=== PATIENT | male | born 1945 | race Caucasian/White ===

== ENCOUNTER 2016-06-18 16:25 | Observation (INO) | payer OTHER, BC ==
[~2016-06-18] VITALS: Ht 182.9 cm; Wt 94.8 kg
[2016-06-18 16:52] LABS: HEMATOCRIT 45.5 % (38.0-50.0); MCH 32.9 PG (29.0-34.0); MCHC 35.2 G/DL (30.0-36.0); MCV 93.4 FL (86-99); MEAN PLAT.VOLUME 10.8 uM^3 (9.0-12.4); PLATELET COUNT 215 K/uL (156-360); RBC DIS.WIDTH-CV 13.3 % (11.8-14.6); RED BLOOD COUNT 4.87 M/uL (4.00-5.50); WHITE BLOOD COUNT 8.4 K/uL (4.1-10.2)
[2016-06-18 17:02] LABS: CHLORIDE 106 mEq/L (99-109); POTASSIUM 4.5 mEq/L (3.7-5.4)
[2016-06-18 17:03] LABS: SODIUM 141 mEq/L (136-147)
[2016-06-18 17:04] LABS: GLUCOSE 94 mg/dL (70-99)
[2016-06-18 17:06] LABS: ANION GAP 10 MEQ/L (2-14)
[2016-06-18 17:08] LABS: GFR ESTIMATE (CALCULATED) > 59 mL/min/
[2016-06-18 17:09] LABS: UREA NITROGEN (BUN) 19 mg/dL (9-23)
[2016-06-18 17:15] LABS: TROP-I INTERPRETATION NEGATIVE; TROPONIN-I < 0.01 ng/mL (0.0-0.30)
[2016-06-19 01:06] VITALS: BP 137/84
[2016-06-19 01:07] LABS: D-DIMER ELISA 0.54 mg/L FEU (< 0.57)
[2016-06-19 01:18] LABS: ALKALINE PHOSPHATASE 90 IU/L (3-129)
[2016-06-19 01:21] LABS: DIRECT BILIRUBIN 0.3 mg/dL (0.0-0.3)
[2016-06-19 01:22] LABS: LIPASE 29 U/L (1.0-51.0)
[2016-06-19 01:25] LABS: TROP-I INTERPRETATION NEGATIVE; TROPONIN-I < 0.01 ng/mL (0.0-0.30)
[2016-06-19 04:00] VITALS: BP 132/70
[2016-06-19 07:38] LABS: TROP-I INTERPRETATION NEGATIVE; TROPONIN-I 0.01 ng/mL (0.0-0.30)
[2016-06-19 09:08] VITALS: BP 143/88
[2016-06-19] MEDS ORDERED: METOPROLOL SUCC25 MG PO (10:47)
[2016-06-19] MEDS ORDERED: ASPIR-LOW81 MG PO (10:47)
[2016-06-19] MEDS ORDERED: PRAVASTATIN SOD40 MG PO (10:47)
[2016-06-19 11:13] LABS: HDL CHOLESTEROL 42 MG/DL (Desirable>=40); LDL CHOLESTEROL 135 mg/dL (Desirable<100); NON-HDL CHOLESTEROL 163 mg/dL (Desirable<160); TOTAL CHOLESTEROL 205 mg/dL (Desirable<200); TRIGLYCERIDES 141 MG/DL (Normal: <150)
[2016-06-19] MEDS ORDERED: PEPCID20 MG PO (11:31)
[2016-06-19 12:46] VITALS: BP 130/80
== END 2016-06-19 13:32 | disposition home or self-care (01) ==
LOC: EME 16:25 → 5WEST 21:23 → EDOF 21:23 → 5WEST 06-19 00:29
PROVIDERS: Hospitalist
DX: R07.89 Other chest pain (principal); E78.5 Hyperlipidemia, unspecified; Z79.82 Long term (current) use of aspirin; Z82.49 Family history of ischemic heart disease and other diseases of the circulatory system; Z87.891 Personal history of nicotine dependence; I10 Essential (primary) hypertension
CPT/HCPCS: 71020; 80048; 80061; 80076; 83690; 84484; 85027; 85379; 93005; 99281; 99285; G0378

== ENCOUNTER → 2016-08-10 | Outpatient (CLI) | payer OTHER, BC ==
[~2016-08-10] VITALS: Ht 182.9 cm; Wt 95.3 kg
[~2016-08-10] MED LIST: ALEVE220 MG PO; ASPIR-LOW81 MG PO; METOPROLOL SUCC25 MG PO; PEPCID20 MG PO; PRAVASTATIN SOD40 MG PO
== END | disposition home or self-care (01) ==
LOC: AMB 10:00
DX: Z12.11 Encounter for screening for malignant neoplasm of colon (principal); D12.8 Benign neoplasm of rectum; K63.5 Polyp of colon; K62.89 Other specified diseases of anus and rectum; K64.8 Other hemorrhoids; R14.2 Eructation; F45.8 Other somatoform disorders; Z87.891 Personal history of nicotine dependence
CPT/HCPCS: 88305; J2250; J3010

== ENCOUNTER 2017-04-17 18:33 | Emergency (ER) | payer OTHER, BC ==
[~2017-04-17] VITALS: Ht 182.9 cm; Wt 99.0 kg
[2017-04-17 21:17] LABS: HEMATOCRIT 44.9 % (38.0-50.0); MCH 32.2 PG (29.0-34.0); MCHC 34.3 G/DL (30.0-36.0); MCV 93.7 FL (86-99); MEAN PLAT.VOLUME 10.8 uM^3 (9.0-12.4); PLATELET COUNT 183 K/uL (156-360); RBC DIS.WIDTH-CV 12.3 % (11.8-14.6); RBC DIS.WIDTH-SD 42.6 % (39-53); RED BLOOD COUNT 4.79 M/uL (4.00-5.50); WHITE BLOOD COUNT 7.3 K/uL (4.1-10.2)
[2017-04-17 21:31] LABS: CHLORIDE 107 mEq/L (99-109); POTASSIUM 3.7 mEq/L (3.7-5.4); SODIUM 140 mEq/L (136-147)
[2017-04-17 21:34] LABS: GLUCOSE 95 mg/dL (70-99)
[2017-04-17 21:35] LABS: ANION GAP 13 MEQ/L (2-14); TOTAL BILIRUBIN 0.6 mg/dL (0.0-1.0)
[2017-04-17 21:37] LABS: ALKALINE PHOSPHATASE 91 IU/L (3-129); GFR ESTIMATE (CALCULATED) > 59 mL/min/
[2017-04-17 21:38] LABS: UREA NITROGEN (BUN) 19 mg/dL (9-23)
[2017-04-17 23:08] LABS: ADD MIUA? NO; BILIRUBIN NEGATIVE; BLOOD NEGATIVE; COLOR STRAW ((YELLOW)); GLUCOSE (STRIP) NEGATIVE; KETONES NEGATIVE; LEUKOCYTES NEGATIVE; NITRITE NEGATIVE; PROTEIN (STRIP) NEGATIVE; SPECIFIC GRAVITY 1.005 (1.000-1.030); UCUL ADDED? NO; UROBILINOGEN 0.2 MG/DL (0.2-1.0)
[2017-04-17 23:30] VITALS: BP 124/76
== END 2017-04-17 23:36 | disposition home or self-care (01) ==
LOC: EME 18:33
PROVIDERS: Physician Assistant
DX: K40.90 Unilateral inguinal hernia, without obstruction or gangrene, not specified as recurrent (principal); R10.30 Lower abdominal pain, unspecified; K21.9 Gastro-esophageal reflux disease without esophagitis; Z87.891 Personal history of nicotine dependence
CPT/HCPCS: 74177; 80053; 81003; 85027; 99281; 99284

== ENCOUNTER 2017-08-16 08:11 | Day surgery (SDC) | payer OTHER, BC ==
[~2017-08-16] VITALS: Ht 182.9 cm; Wt 95.2 kg
[~2017-08-16 08:11] MED LIST changes: +CLARITIN,ALAVAR10 MG PO; +FLOMAX0.4 MG PO
[2017-08-16 08:42] VITALS: BP 143/84
[2017-08-16 08:42] LABS: HEMATOCRIT 47.5 % (38.0-50.0); HEMOGLOBIN 16.1 G/DL (12.5-16.6); MCH 31.4 PG (29.0-34.0); MCHC 33.9 G/DL (30.0-36.0); MCV 92.6 FL (86-99); PLATELET COUNT 246 K/uL (156-360); RBC DIS.WIDTH-CV 12.4 % (11.8-14.6); RBC DIS.WIDTH-SD 42.5 % (39-53); RED BLOOD COUNT 5.13 M/uL (4.00-5.50); WHITE BLOOD COUNT 8.3 K/uL (4.1-10.2)
[2017-08-16 09:15] LABS: CHLORIDE 103 MEQ/L (99-109); GFR ESTIMATE (CALCULATED) > 59 mL/min/ (58.99-99999); GLUCOSE 99 mg/dL (70-99); SODIUM 138 MEQ/L (136-147); UREA NITROGEN (BUN) 18 mg/dL (9-23)
[2017-08-16] MEDS ORDERED: OXYCODONE HCL5 MG PO (10:44)
[2017-08-16 11:30] VITALS: BP 146/80
[2017-08-16 12:30] VITALS: BP 143/79
== END 2017-08-16 12:46 | disposition home or self-care (01) ==
LOC: SDC 08:11
PROVIDERS: Surgery
DX: K40.90 Unilateral inguinal hernia, without obstruction or gangrene, not specified as recurrent (principal); D17.6 Benign lipomatous neoplasm of spermatic cord; N40.1 Benign prostatic hyperplasia with lower urinary tract symptoms; R39.14 Feeling of incomplete bladder emptying; F45.8 Other somatoform disorders; Z87.891 Personal history of nicotine dependence
CPT/HCPCS: 80048; 85027; 93005; C1781; J0690; J1100; J1170; J1885; J2405; S0020